=== PATIENT | female | born 1990 | race Caucasian/White ===

== ENCOUNTER 2016-10-01 03:32 | Emergency (ER) | payer OTHER ==
[2016-10-01] MEDS ORDERED: IPRATROPIUM 0.5MG/ALBUTEROL 2.5MG INH SOL UD 3ML (DUONEB)(J7620) As Ordered ONE (04:01)
[2016-10-01 04:36] LABS: CARBOXYHEMOGLOBIN 2.3 % (0.0-1.5); VENOUS BASE EXCESS 1.1 (-2.0-2.0); VENOUS O2 SATURATION 85.8 % (60.0-80.0); VENOUS PARTIAL PRESSURE CO2 40.3 mmHg (38.0-50.0); VENOUS PARTIAL PRESSURE O2 48.2 mmHg (30.0-50.0); VENOUS STANDARD HCO3 25.1 MEQ/L; VENOUS TOTAL CO2 26.8 MEQ/L (24.0-28.0)
--- NOTE | 2016-10-01 08:33 | REP ---
Portable chest: Single view. History: Cough. Comparison study: February 24, 2016. Findings: The lungs are well inflated and clear. Pleural angles are sharp. Heart size is normal. Pulmonary vasculature is not increased. No significant bony abnormality. Impression: Negative portable chest x-ray. Signed by Deric Atkins MD 10/01/2016 08:47 A
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
== END 2016-10-01 10:04 | disposition home or self-care (01) ==
LOC: M ED 03:32
DX: J70.5 Respiratory conditions due to smoke inhalation (principal); R06.00 Dyspnea, unspecified

== ENCOUNTER → 2017-04-19 | Outpatient (REF) | payer OTHER | LOC: M LAB REF 12:26 | PROVIDERS: ATTEND Family Medicine Addiction Medicine | DX: R59.1 Generalized enlarged lymph nodes (principal) ==

== ENCOUNTER → 2020-03-06 | Outpatient (CLI) | payer OTHER, MEDICAID ==
--- NOTE | 2020-03-06 11:15 | REP ---
REASON FOR EXAM: Atraumatic pain. FINDINGS: The hip joint space is symmetric and relatively well maintained. T here is no acute or destructive osseous lesion. Electronically Signed by Magan Swain DO 03/06/2020 02:46 P
== END ==
LOC: M LRY 10:24
PROVIDERS: ATTEND Nurse Practitioner Family
DX: M25.552 Pain in left hip (principal)

== ENCOUNTER → 2020-09-01 | Outpatient (CLI) | payer OTHER | LOC: M LABSMTC 09:07 | PROVIDERS: ATTEND Family Medicine | DX: Z11.59 Encounter for screening for other viral diseases (principal) ==

== ENCOUNTER → 2021-05-20 | Outpatient (CLI) | payer OTHER ==
--- NOTE | 2021-05-20 14:25 | REP ---
INDICATION: LYMPHADENOPATHY, LAD PT NEEDS XR AFTER US. COMPARISON: None. TECHNIQUE: Real-time sonographic evaluation of palpable lymph nodes in the neck FINDINGS: Multiple peripherally hypoechoic centrally echogenic reniform shape solid nodules are seen bilaterally. These are lymph nodes. On the right the largest measures 2.6 x 1.6 x 0.7 cm. The largest on the left measures 1.2 x 0.4 x 1 cm. Both of these represent the palpable area of clinical interest. There is a single lymph node in the left neck which is non reniform but is not enlarged and there is a single node in the right neck which is non reniform and not enlarged. IMPRESSION: Bilateral lymph nodes as described above. One on each side may be reactive since the loss a reniform shape. This needs to be correlated clinically. Contrast-enhanced neck CT is recommended since remains the gold standard for imaging neck masses. <Electronically signed by Magan Swain > 05/20/21 [id number]
--- NOTE | 2021-05-20 14:32 | REP ---
INDICATION: LOW BACK PAIN PT HAS US FIRST THEN XR COMPARISON: None. TECHNIQUE: AP, lateral, coned-down views of the lumbar spine. FINDINGS: Three views of the lumbosacral spine demonstrate satisfactory alignment and lordosis without acute fracture / compression injury or subluxation. IMPRESSION: Normal age-appropriate lumbosacral spine radiographs. <Electronically signed by Nicholas Mario > 05/20/21 [id number]
== END ==
LOC: M RAD 13:42
PROVIDERS: ATTEND Physician Assistant
DX: I89.0 Lymphedema, not elsewhere classified (principal)

== ENCOUNTER → 2021-12-13 | Outpatient (CLI) | payer OTHER ==
[~2021-12-13] MED LIST: ISOVUE-370 76% 100ML VIAL ONE
== END ==
LOC: M PLAIMG 09:50
PROVIDERS: ATTEND Physician Assistant
DX: I89.0 Lymphedema, not elsewhere classified (principal)